=== PATIENT | male | born 1950 | race Caucasian/White ===

== ENCOUNTER 2019-07-11 12:34 | Outpatient (CLI) | payer MEDICARE, MEDICAID, SELFPAY ==
--- NOTE | 2019-07-11 12:43 | MR_ITS ---
WS: [id number] MRI LUMBAR SPINE NONCONTRAST HISTORY: HYPER REFLEXIA OF LOWER EXTREMITY COMPARISON: None available. TECHNIQUE: Sagittal and axial multisequence imaging is submitted. Skeletal survey demonstrates reversal of the normal cervical lordosis with severe disc space narrowin g. Encroachment upon the central cervical canal at several levels. Severe rotary scoliosis in the lumbar spine with convexity to the LEFT. Asymmetric disc space narrowi ng. Large osteophytes extend anterior posterior throughout the lumbar spine. Mild reactive marrow edema in the endplates of L4 and L5. Conus terminates normally at L1-2 disc level. L1-L2: Diffuse annular disc bulging and osteophytic ridging with facet arthritis. No central stenosis . Moderate bilateral foraminal stenosis. L2-L3: Severe annular disc bulging and osteophytic ridging. RIGHT facet arthritis encroaches upon the RIGHT lateral thecal sac and is abuts the nerve roots. Mild central stenosis with mild RIGHT and mod erate LEFT foraminal stenosis. L3-L4: Diffuse annular disc bulging and osteophytic ridging. Facet joint arthritis encroaches upon th e thecal sac. Moderate RIGHT foraminal stenosis. L4-L5: Marked asymmetric disc bulging and osteophytic ridging and facet arthritis. Nerve roots are cl umped within the central thecal sac. There is moderate central and subarticular recess stenosis. Kriss re RIGHT and moderate LEFT foraminal stenosis. L5-S1: Annular disc bulging and osteophytic ridging. Central disc protrusion and mild facet arthritis . Moderate LEFT foraminal stenosis. Mild fatty replacement of the RIGHT psoas muscle. MR/MR lumbar spine wo con* [id number] IMPRESSION: 1. Severe LEFT convex rotoscoliosis lumbar spine and degenerative facet arthri tis. 2. Multilevel foraminal and central stenoses. Multifactorial stenoses with lar ge osteophytes from the vertebral bodies. 3. Moderate central, bilateral subarticular recess stenosis with severe RIGHT and moderate LEFT foraminal stenosis at L4-5. 4. Moderate LEFT foraminal stenosis at L3-4 and L5-S1. 5. Moderate bilateral foraminal stenosis at L1-2. 6. Mild central and RIGHT foraminal stenosis with moderate LEFT foraminal sten osis at L2-3.
== END 2019-07-11 12:35 | disposition home or self-care (01) ==
LOC: RADWPI 12:39
PROVIDERS: Family Provider Family Medicine; PCP Family Medicine; Visit Provider Family Medicine
DX: R29.2 Abnormal reflex (principal); M41.86 Other forms of scoliosis, lumbar region; M48.061 Spinal stenosis, lumbar region without neurogenic claudication; M25.78 Osteophyte, vertebrae
CPT/HCPCS: 72148

== ENCOUNTER 2019-08-20 12:59 | Outpatient (CLI) | payer MEDICARE, MEDICAID, SELFPAY ==
--- NOTE | 2019-08-20 12:45 | USCV_ITS ---
Roscoe Ascencio Age: 69 Gender: M : 1950 Exam Date: 08/20/2019 13:28 Ordering Phys: Dewayne Ellsworth MD ([email or web address]) Technologist: Sherice Elizabeth [place] [facility] [place]: AORTIC STENOSIS BP: / HR: 76 Rhythm: Sinus Technical Quality: Adequate MEASUREMENTS (Male / Female) Normal Values 2D ECHO LV Diastolic Diameter PLAX 4.1 cm 4.2 - 5.9 / 3.9 - 5.3 cm LV Systolic Diameter PLAX 2.9 cm IVS Diastolic Thickness 0.8 cm 0.6 - 1.0 / 0.6 - 0.9 cm IVS Systolic Thickness 1.6 cm LVPW Diastolic Thickness 1.1 cm 0.6 - 1.0 / 0.6 - 0.9 cm LVPW Systolic Thickness 1.5 cm LVOT Diameter 2.1 cm LV Ejection Fraction 2D Teich 59.1 % LV Ejection Fraction MOD 2C 76.2 % LV Ejection Fraction 2C AL 76.8 % LA Diameter 3.2 cm LA Width 2.9 cm LA Height 4.0 cm RA Width 3.2 cm RA Height 3.6 cm M-MODE LV Diastolic Diameter MM 5.3 cm 4.2 - 5.9 / 3.9 - 5.3 cm LV Systolic Diameter MM 3.3 cm LV Ejection Fraction MM Teich 66.2 % IVS Diastolic Thickness MM 0.6 cm 0.6 - 1.0 / 0.6 - 0.9 cm IVS Systolic Thickness MM 1.2 cm LVPW Diastolic Thickness MM 0.9 cm 0.6 - 1.0 / 0.6 - 0.9 cm LVPW Systolic Thickness MM 1.3 cm Aortic Annulus Diameter 3.6 cm LA Ao Ratio MM 0.9 MV E Point Septal Separation 0.3 cm DOPPLER AV Peak Velocity 164.0 cm/s LVOT Peak Velocity 87.0 cm/s AV Area Cont Eq vti 2.0 cm squared AV Area Cont Eq pk 1.9 cm squared MV Peak Velocity 89.0 cm/s MV Area PHT 4.6 cm squared Mitral E to A Ratio 1.0 MV E' Velocity 9.0 cm/s Mitral E to MV E' Ratio 9.1 Mitral E to LV E' Lateral Ratio 10.0 Mitral E to LV E' Septal Ratio 8.4 TR Peak Velocity 121.0 cm/s TR Peak Gradient 5.9 mmHg Right Atrial Pressure 3.0 mmHg Pulmonary Artery Systolic Pressu 8.9 mmHg PV Peak Velocity 83.0 cm/s RV Acceleration Time 0.1 s FINDINGS Left Ventricle Normal left ventricular size, systolic function and wall thickness, with no regional wall motion abnormalities. Grade I/IV diastolic dysfunction (abnormal relaxation filling pattern), normal to mildly elevated filling pressures. Left ventricular ejection fraction is estimated at 65 %. Right Ventricle Normal right ventricular size and systolic function. Normal right ventricular systolic pressure. Right Atrium The right atrium is normal in size. Left Atrium The left atrium is normal in size. Mitral Valve Structurally normal mitral valve. Trace mitral valve regurgitation. Aortic Valve Structurally normal trileaflet aortic valve. Mild aortic valve calcification. Mild aortic valve stenosis, mean gradient 5.3 mmHg, JERI 2 cm squared. Mild aortic valve regurgitation. Tricuspid Valve Structurally normal tricuspid valve. Trace tricuspid valve regurgitation. Pulmonic Valve Pulmonic valve not well visualized. Pericardium Normal pericardium without effusion. Aorta Normal ascending aorta dimension. CONCLUSIONS Normal left ventricular size, systolic function and wall thickness, with no regional wall motion abnormalities. Grade I/IV diastolic dysfunction (abnormal relaxation filling pattern), normal to mildly elevated filling pressures. Left ventricular ejection fraction is estimated at 65 %. Structurally normal mitral valve. Trace mitral valve regurgitation. Structurally normal trileaflet aortic valve. Mild aortic valve calcification. Mild aortic valve stenosis, mean gradient 5.3 mmHg, JERI 2 cm squared. Mild aortic valve regurgitation. The study is unchanged since 03/26/2017. Dr. Dewayne Ellsworth MD (Electronically Signed) Final Date: 20 August 2019 17:34 S
== END 2019-08-20 13:00 | disposition home or self-care (01) ==
LOC: RAD 13:03
PROVIDERS: Family Provider Family Medicine; PCP Family Medicine; Visit Provider Internal Medicine Cardiovascular Disease
DX: I08.0 Rheumatic disorders of both mitral and aortic valves (principal)
CPT/HCPCS: 93306

== ENCOUNTER 2019-10-16 10:15 | Outpatient (CLI) | payer MEDICARE, MEDICAID, SELFPAY ==
--- NOTE | 2019-10-16 10:21 | CT_ITS ---
WS: [id number] CT CHEST WITHOUT INTRAVENOUS CONTRAST HISTORY: LUNG MASS TECHNIQUE: Contiguous 5 mm axial imaging performed on the thorax. Coronal and sagittal reformats are submitted. All CT scans at [facility] use at least one of these dose optimization techniq ues: automated exposure control; mA and/or kV adjustment per patient size (includes targeted exams wh ere dose is matched to clinical indication); or iterative reconstruction. CONTRAST: None DLP: 573.07 mGycm COMPARISON: 04/16/2017 Lungs and central airway: Prior RIGHT upper lobectomy. Surgical sutures at the RIGHT hilum are stable with no adjacent soft tissue. Chronic emphysematous changes. Mild volume loss in the RIGHT lung from the prior upper lobectomy. There is new very mild interstitial thickening in the periphery in the RI GHT upper thorax. Pleura: Normal. No pleural effusion. Heart and pericardium: Mildly enlarged heart chambers. Mediastinum and arsenoi: Slight shift of the mediastinal structures to the RIGHT secondary to the lobect antonino and volume loss. 10 mm lymph node anterior to the trachea near the level of the great vessels. Th is lymph node is indeterminate in size but slightly increased in size since the prior study. There ar e a few additional smaller lymph nodes. Vessels: Ectasia and atherosclerosis of aorta. Very mild aneurysmal dilatation to 4.1 cm of the ascen ding aorta. Pulmonary artery size is enlarged slightly. Chest wall and lower neck: No soft tissue masses. Upper abdomen: Marked constipation and fecal retention throughout the visualized colon. No adrenal ma ss. Visualized liver on this unenhanced study is negative. Osseous structures: Straightening of the normal thoracic kyphosis. No osteoblastic or osteolytic bone disease. There is diffuse osteopenia. Stable sclerotic focus along the posterior RIGHT RIBS, image 2 4 series 3. Prior posterior healed RIGHT rib fractures. CT/CT chest wo con [id number] IMPRESSION: 1. Status post RIGHT upper lobectomy. No evidence for recurrent neoplasm. 2. Indeterminate but minimal increase in size of the anterior RIGHT paratrache al lymph node. Now measuring 10 mm. 3. Severe emphysema. 4. Severe obstipation and constipation. 5. Mild dilatation ascending aorta to 4.1 cm.
== END 2019-10-16 10:16 | disposition home or self-care (01) ==
LOC: RADWPI 10:18
PROVIDERS: Family Provider Family Medicine; PCP Family Medicine; Visit Provider Family Medicine
DX: R91.8 Other nonspecific abnormal finding of lung field (principal); Z90.2 Acquired absence of lung [part of]; J43.9 Emphysema, unspecified; K59.00 Constipation, unspecified; I77.819 Aortic ectasia, unspecified site
CPT/HCPCS: 71250

== ENCOUNTER 2019-12-09 16:45 | Observation (INO) | payer MEDICARE, MEDICAID, SELFPAY ==
--- NOTE | 2019-12-09 17:37 | CTR_ITS ---
PROCEDURE INFORMATION: Exam: CT Head Without Contrast Exam date and time: 12/09/2019 5:54 PM Age: 69 years old Clinical indication: Weakness, extremity; Patient HX: AMS; Additional info: Altered mental status TECHNIQUE: Imaging protocol: Computed tomography of the head without contrast. Radiation optimization: All CT scans at this facility use at least one of these dose optimization techniques: automated exposure control; mA and/or kV adjustment per patient size (includes targeted exams where dose is matched to clinical indication); or iterative reconstruction. COMPARISON: No relevant prior studies available. RADIATION DOSE METRICS: Total DLP (mGy-cm): 724.78 FINDINGS: Brain: Mild diffuse cortical volume loss. 8 mm coarse calcification in the posterior left parietal lobe which may be located within a sulcus. Severe vasogenic edema throughout the left parietal, occipital, and posterior temporal lobes which spares the overlying cortex. Partial sulcal effacement of the left parietal and occipital lobes. 2 mm [id number] subfalcine shift. No intracranial hemorrhage. Cerebral ventricles: Partial effacement of the left occipital horn. No hydrocephalus. Bones/joints: Unremarkable. No acute fracture. Paranasal sinuses: Visualized sinuses are unremarkable. No fluid levels. Mastoid air cells: Visualized mastoid air cells are well aerated. Vasculature: No hyperdense artery. Soft tissues: Unremarkable. CT/CT head wo con* [id number] IMPRESSION: 1. Severe vasogenic edema in the left parietal, occipital, and temporal lobes. This is suspicious for an underlying neoplastic process which could be primary or metastatic. Further evaluation with brain MRI without and with IV gadolinium is recommended. 2. Left hemispheric mass effect contributes to effacement of sulci, effacement of the left occipital horn, and 2 mm [id number] subfalcine shift. 3. 8 mm probable dystrophic calcification in the left parietal lobe may be within the cortex or extra-axial in location. Attention on MRI follow-up. Radiation Dose CTDIVOL = (mGy): DLP = 724.78 (mGy-cm)
[2019-12-09 17:42] VITALS: BP 137/87; PULSE 87; RESP 18; TEMP 36.9; O2SAT 97; BMI 21.2
--- NOTE | 2019-12-09 17:53 | ECG_ITS ---
[facility] Test Date: 2019-12-09 Pat Name: Roscoe Ascencio Department: Room: Gender: Male [employer]: : 1950 Requested By: Joshua Clemente Order Number: [id number] Kaye MD: Misty Padron M.D. Measurements Intervals [place] Rate: 75 P: 116 NH: 197 QRS: -36 QRSD: 106 T: 17 QT: 407 QTc: 455 Interpretive Statements SINUS RHYTHM LEFT AXIS DEVIATION [QRS AXIS < -30] POSSIBLE RIGHT VENTRICULAR CONDUCTION DELAY [RSR (QR) IN V1/V2] ANTERIOR MYOCARDIAL INFARCTION , OF INDETERMINATE AGE [40+ ms Q WAVE AND/OR ST/T ABNORMALITY IN V3/V4] Compared to ECG 10/05/2014 11:47:45 Myocardial infarct finding now present ST (T wave) deviation no longer present Electronically Signed On 12-09-2019 20:13:41 CDT by Misty Padron M.D. [id number]
--- NOTE | 2019-12-09 17:53 | XRR_ITS ---
PROCEDURE INFORMATION: Exam: XR Chest, 1 View Exam date and time: 12/09/2019 6:30 PM Age: 69 years old Clinical indication: Other: AMS; Prior surgery; Surgery type: Lung TECHNIQUE: Imaging protocol: XR of the chest Views: 1 view. COMPARISON: CT chest con [id number] 10/16/2019 10:29 AM FINDINGS: Lungs: Clips are present in the right pulmonary hilum from right upper lobectomy. The pulmonary vascularity is normal. No acute pulmonary infiltrates are seen. Pleural space: Unremarkable. No pleural effusion. No pneumothorax. Heart/Mediastinum: Heart is not enlarged. There is tortuosity of the aorta. Bones/joints: There is old fracture of the right 6th rib. XR/XR chest 1V portable [id number] IMPRESSION: No acute abnormalities are seen in the chest.
--- NOTE | 2019-12-09 18:18 | W.ED.AMS ---
HPI - Altered Mental Status General: Chief Complaint: Altered Mental Status Stated Complaint: sent from doc for delirium and neuroimaging Time Seen by Provider: 12/09/19 17:53 Source: patient Mode of arrival: ambulatory Limitations: no limitations History of Present Illness: HPI narrative: 69-year-old male that states has had multiple falls and weakness over the last 10 days. Patient had a fall 1 week ago where he struck his head. She states he is not been acting right and is confused. Here he tells me is 1970 and is only alert to self. She states he has not been like this in the past. Patient was sent here by his PCP. He denies any fever or pain. Associated symptoms: Deny depression Review of Systems Const: Denies: fever(s), chills, body aches or change in appetite Eyes: Denies: blurry vision or eye discomfort ENMT: Denies: throat pain or dental pain Card: Denies: chest pain Resp: Denies: dyspnea GI: Denies: abdominal pain, nausea, vomiting or diarrhea : Denies: dysuria Musc: Reports: muscle weakness; Denies: neck pain or back pain Skin/Breast: Denies: rash Neuro: Reports: frequent falls and confusion; Denies: headache(s) Psych: Denies: depression Kwame/Lymph: Denies: easy bruising All/Imm: Denies: urticaria PFS ED PFSH: Medical History (Updated 12/09/19 @ 20:29 by David Nunes MD) Aortic regurgitation Aortic stenosis Dyslipidemia Lung cancer Non-small cell lung cancer Peptic ulcer disease Urethral trauma Status post repair 2010 Surgical History (Updated 12/09/19 @ 20:29 by David Nunes MD) S/P appendectomy S/P cataract extraction S/P hernia repair 2003 S/P lobectomy of lung 10/08/2014, muscle-sparing right thoracotomy right upper and middle lobectomy Family History (Updated 12/09/19 @ 20:29 by David Nunes MD) Brother Cancer Melanoma Sister Cancer Brain tumor Social History Smoking and tobacco status: former smoker Household members: spouse Marital status: Physical Exam Const: COMMON NORMALS: no acute distress and alert; negative for patient oriented x3 GENERAL APPEARANCE: ill appearing and frail appearing ORIENTATION/CONSCIOUSNESS: Yes oriented to person; not oriented to place and not oriented to time HENMT: COMMON NORMALS: normocephalic and atraumatic HEAD & SCALP: normocephalic and atraumatic Eye: COMMON NORMALS: Equal, round and reactive pupils present and EOMs intact bilaterally PUPIL: Yes Equal, round and reactive pupils present Neck/C-Spine: COMMON NORMALS: full ROM and supple Chest: COMMONS NORMALS: normal inspection of the chest and normal palpation of entire chest wall Resp: COMMON NORMALS: normal respiratory effort, No retractions, No use of accessory muscles and clear to auscultation bilaterally AUSCULTATION: clear to auscultation bilaterally Cardio: COMMON NORMALS: regular rate, regular rhythm and No murmurs present (Cardio) RATE: regular rate RHYTHM: regular rhythm GI: COMMON NORMALS: Normal to inspection, nondistended, normoactive bowel sounds present, Soft to palpation, non-tender and no masses PALPATION: Yes Soft to palpation Extremity: COMMON NORMALS: normal to inspection and full ROM Neuro: COMMON NORMALS: moves all extremities and no focal motor deficits; negative for patient oriented x3 SENSORIUM/ORIENTATION: Yes alert, Yes oriented to person, No oriented to place and No oriented to time Psych: COMMON NORMALS: mental status grossly normal, Normal thought process present and cooperative THOUGHT PROCESS: Normal thought process present Skin: COMMON NORMALS: no rashes or lesions noted and no wounds GENERAL SKIN EXAM: no rashes or lesions noted Course Vital Signs: Vital signs: Vital Signs Temperature 98.5 F 12/09/19 17:42 Pulse Rate 75 12/09/19 20:36 Respiratory Rate 16 12/09/19 20:36 Blood Pressure 148/94 12/09/19 20:36 Pulse Oximetry 97 12/09/19 20:36 MDM - Altered Mental Status MDM Narrative: Medical decision making narrative: Roscoe presents here with confusion along with frequent falls over the last week. CT head shows edema with likely brain mass. I spoke to hospitalist and will admit at this time. Patient here has been stable. Lab Data: Labs: Lab Results 12/09/19 12/09/19 12/09/19 Range/Units 18:02 18:02 18:02 WBC 10.9 H (4.0-10.0) 10^3/ uL RBC 4.37 (4.1-5.3) 10^6/u L Hgb 12.3 (11.7-16.6) g/dL Hct 38.6 L (42.0-52.0) % MCV 88.3 (80-94) fL MCH 28.1 (28.0-34.0) pg MCHC 31.9 (30.0-36.0) g/dL RDW 13.5 (12.1-15.1) % Plt Count 259 (130-400) 10^3/c mm MPV 10.8 H (7.4-10.4) fL Neut % (Auto) 83.7 % Lymph % (Auto) 9.4 % [place] % (Auto) 5.8 % Eos % (Auto) 0.6 % Baso % (Auto) 0.2 % Neut # (Auto) 9.13 H (1.8-7.7) 10^3/u L Lymph # (Auto) 1.0 (0.8-4.8) 10^3/u L [place] # (Auto) 0.6 (0.2-0.9) 10^3/u L Eos # (Auto) 0.1 (0.0-0.8) 10^3/u L Baso # (Auto) 0.0 (0.0-0.1) 10^3/u L Nucleated RBC % (a uto) 0 % Nucleated RBCs # 0.0 /100WBC PT 13.60 (12.1-14.9) SECO NDS INR 1.01 (0.8-1.2) Sodium 132 L (136-145) mmol/L Potassium 3.9 (3.5-5.1) mmol/L Chloride 95 L (98-107) mmol/L Carbon Dioxide 26 (22-29) mmol/L Anion Gap 14.9 (5-19) BUN 11 (8-23) mg/dL Creatinine 0.7 (0.7-1.2) mg/dL GFR Calculation Not Reportable Glucose 110 (65-115) mg/dL Calculated Osmolal ity 274 L (285-295) mOsm/k g Calcium 9.2 (8.5-10.5) mg/dL Total Bilirubin 0.2 (0.15-1.2) mg/dL AST 20 (0-40) U/L ALT 15 (0-41) U/L Alkaline Phosphata se 114 (40-130) IU/L Ammonia (16-60) umol/L Total Protein 7.3 (6.6-8.7) g/dL Albumin 4.3 (3.5-5.2) g/dL Globulin 3.0 (1.3-4.6) g/dL Urine Color (Yellow) Urine Appearance (CLEAR) Urine pH (5-7) Ur Specific Gravit y (1.005-1.030) Urine Protein (Negative) Urine Glucose (UA) (Normal) Urine Ketones (Negative) Urine Blood (Negative) Urine Nitrate (Negative) Urine Bilirubin (Negative) Urine Urobilinogen (Negative) mg/dL Ur Leukocyte Shari ase (Negative) Urine RBC (0-2) /hpf Urine WBC (0-5) /hpf Ur Squamous Epith Cells (0-5) /hpf Amorphous Sediment Urine Bacteria (NONE) /hpf Urine Yeast /hpf 12/09/19 12/09/19 Range/Units 18:02 18:37 WBC (4.0-10.0) 10^3/ uL RBC (4.1-5.3) 10^6/u L Hgb (11.7-16.6) g/dL Hct (42.0-52.0) % MCV (80-94) fL MCH (28.0-34.0) pg MCHC (30.0-36.0) g/dL RDW (12.1-15.1) % Plt Count (130-400) 10^3/c mm MPV (7.4-10.4) fL Neut % (Auto) % Lymph % (Auto) % [place] % (Auto) % Eos % (Auto) % Baso % (Auto) % Neut # (Auto) (1.8-7.7) 10^3/u L Lymph # (Auto) (0.8-4.8) 10^3/u L [place] # (Auto) (0.2-0.9) 10^3/u L Eos # (Auto) (0.0-0.8) 10^3/u L Baso # (Auto) (0.0-0.1) 10^3/u L Nucleated RBC % (a uto) % Nucleated RBCs # /100WBC PT (12.1-14.9) SECO NDS INR (0.8-1.2) Sodium (136-145) mmol/L Potassium (3.5-5.1) mmol/L Chloride (98-107) mmol/L Carbon Dioxide (22-29) mmol/L Anion Gap (5-19) BUN (8-23) mg/dL Creatinine (0.7-1.2) mg/dL GFR Calculation Glucose (65-115) mg/dL Calculated Osmolal ity (285-295) mOsm/k g Calcium (8.5-10.5) mg/dL Total Bilirubin (0.15-1.2) mg/dL AST (0-40) U/L ALT (0-41) U/L Alkaline Phosphata se (40-130) IU/L Ammonia 10 L (16-60) umol/L Total Protein (6.6-8.7) g/dL Albumin (3.5-5.2) g/dL Globulin (1.3-4.6) g/dL Urine Color Yellow (Yellow) Urine Appearance Hazy A (CLEAR) Urine pH 7 (5-7) Ur Specific Gravit y 1.010 (1.005-1.030) Urine Protein Neg (Negative) Urine Glucose (UA) Norm (Normal) Urine Ketones Negative (Negative) Urine Blood 3+ H (Negative) Urine Nitrate Negative (Negative) Urine Bilirubin Neg (Negative) Urine Urobilinogen Norm (Negative) mg/dL Ur Leukocyte Shari ase Negative (Negative) Urine RBC 10-15 H (0-2) /hpf Urine WBC 0-4 H (0-5) /hpf Ur Squamous Epith Cells 0-4 H (0-5) /hpf Amorphous Sediment Not Reportable Urine Bacteria 1+ H (NONE) /hpf Urine Yeast 2+ H /hpf Imaging Data^: CXR: Attestation: I personally reviewed and interpreted this imaging study as follows: My impression: No acute abnormality CT Head: Radiologist's impression: [address] [place] [address] CT Scan Report Signed with Addenda Patient: Roscoe Ascencio Unit #: [id number] : 1950 Age/Sex: 69 / M ADM Date: 12/09/19 Loc: ER Room/Bed: Attending Dr: Ordering Provider/Ordering MD: Edelmira Villafana MD Date of Service: 12/09/19 Procedure(s): CT head wo con* [id number] Accession Number(s): [id number] Report Number: [id number]/CT head wo con* [id number] THIS REPORT CONTAINS FINDINGS THAT MAY BE CRITICAL TO PATIENT CARE. The findings were verbally communicated via telephone conference with Dr. Clemente at 7:27 PM CDT on 12/09/2019. The findings were acknowledged and understood. Radiation Dose CTDIVOL = (mGy): DLP = 724.78 (mGy-cm) Addendum Dictated By: Ferdinand Alatorre Addendum Signed By: Ferdinand Alatorre Signed Date/Time: 12/09/19 1 929 Addendum Cosigned By: PROCEDURE INFORMATION: Exam: CT Head Without Contrast Exam date and time: 12/09/2019 5:54 PM Age: 69 years old Clinical indication: Weakness, extremity; Patient HX: AMS; Additional info: Altered mental status TECHNIQUE: Imaging protocol: Computed tomography of the head without contrast. Radiation optimization: All CT scans at this facility use at least one of these dose optimization techniques: automated exposure control; mA and/or kV adjustment per patient size (includes targeted exams where dose is matched to clinical indication); or iterative reconstruction. COMPARISON: No relevant prior studies available. RADIATION DOSE METRICS: Total DLP (mGy-cm): 724.78 FINDINGS: Brain: Mild diffuse cortical volume loss. 8 mm coarse calcification in the posterior left parietal lobe which may be located within a sulcus. Severe vasogenic edema throughout the left parietal, occipital, and posterior temporal lobes which spares the overlying cortex. Partial sulcal effacement of the left parietal and occipital lobes. 2 mm [id number] subfalcine shift. No intracranial hemorrhage. Cerebral ventricles: Partial effacement of the left occipital horn. No hydrocephalus. Bones/joints: Unremarkable. No acute fracture. Paranasal sinuses: Visualized sinuses are unremarkable. No fluid levels. Mastoid air cells: Visualized mastoid air cells are well aerated. Vasculature: No hyperdense artery. Soft tissues: Unremarkable. CT/CT head wo con* [id number] IMPRESSION: 1. Severe vasogenic edema in the left parietal, occipital, and temporal lobes. This is suspicious for an underlying neoplastic process which could be primary or metastatic. Further evaluation with brain MRI without and with IV gadolinium is recommended. 2. Left hemispheric mass effect contributes to effacement of sulci, effacement of the left occipital horn, and 2 mm pnui-pe-lehbs subfalcine shift. 3. 8 mm probable dystrophic calcification in the left parietal lobe may be within the cortex or extra-axial in location. Attention on MRI follow-up. Discharge Plan Discharge Patient Disposition: Admitted As Inpatient Clinical Impression: Brain mass Altered mental status Qualifiers: Altered mental status type: unspecified Qualified Code(s): R41.82 - Altered mental status, unspecified Condition: Stable Referrals: Delmer Whitley MD [Primary Care Provider] - Coding Level of Care Code ED General Counsel for [facility] Fwd Exam Comprehensive
[2019-12-09 18:31] LABS: Ammonia 10 umol/L (16-60)
[2019-12-09 18:43] LABS: Basophils % 0.2 %; Eosinophils # 0.1 10^3/uL (0.0-0.8); Eosinophils % 0.6 %; Hematocrit 38.6 % (42.0-52.0); Hemoglobin 12.3 g/dL (11.7-16.6); INR 1.01 (0.8-1.2); Lymphocytes % 9.4 %; Mean Corpuscular HGB Conc 31.9 g/dL (30.0-36.0); Mean Corpuscular Hemoglobin 28.1 pg (28.0-34.0); Mean Corpuscular Volume 88.3 fL (80-94); Mean Platelet Volume 10.8 fL (7.4-10.4); Monocytes # 0.6 10^3/uL (0.2-0.9); Monocytes % 5.8 %; Neutrophils # 9.13 10^3/uL (1.8-7.7); Neutrophils % 83.7 %; Nucleated Red Blood Cells % 0 %; Platelet Count 259 10^3/cmm (130-400); Red Blood Count 4.37 10^6/uL (4.1-5.3); Red Cell Distribution Width 13.5 % (12.1-15.1); White Blood Count 10.9 10^3/uL (4.0-10.0)
[2019-12-09 18:47] LABS: Alanine Aminotransferase 15 U/L (0-41); Albumin Level 4.3 g/dL (3.5-5.2); Alkaline Phosphatase 114 IU/L (40-130); Anion Gap 14.9 (5-19); Aspartate Amino Transferase 20 U/L (0-40); Blood Urea Nitrogen 11 mg/dL (8-23); Calcium 9.2 mg/dL (8.5-10.5); Carbon Dioxide 26 mmol/L (22-29); Chloride 95 mmol/L (98-107); Glucose 110 mg/dL (65-115); Osmolality Calculated 274 mOsm/kg (285-295); Potassium 3.9 mmol/L (3.5-5.1); Sodium 132 mmol/L (136-145); Total Bilirubin 0.2 mg/dL (0.15-1.2); Total Protein 7.3 g/dL (6.6-8.7)
--- NOTE | 2019-12-09 18:59 | PC.NURSE ---
Pt to CT
--- NOTE | 2019-12-09 19:12 | PC.NURSE ---
Pt back in unit from CT
[2019-12-09 19:14] VITALS: BP 122/101; PULSE 76; RESP 18; O2SAT 98
[2019-12-09 19:29] LABS: Add Urine Microscopic? YES; Bilirubin Urine Neg (Negative); Blood Urine 3+ (Negative); Glucose Urine UA Norm (Normal); Ketones Urine Negative (Negative); Leukocyte Esterase Urine Negative (Negative); Nitrate Urine Negative (Negative); Protein Urine Neg (Negative); Urine Appearance Hazy (CLEAR); Urine Color Yellow (Yellow); Urobilinogen Urine Norm (Negative); pH Urine 7 (5-7)
[2019-12-09 19:50] LABS: Add Urine Culture? Yes; Bacteria Urine 1+ /hpf; Squamous Epithelial Cell Urine 0-4 /hpf (0-5); WBC Urine 0-4 /hpf (0-5)
--- NOTE | 2019-12-09 20:25 | PM.HP ---
Providers/Chief Complaint Primary Care Provider: Delmer Whitley MD Chief Complaint: sent from doc for delirium and neuroimaging History of Present Illness Roscoe Ascencio is a 69 year old male with history of non-small cell lung cancer status post muscle-sparing thoracotomy 2015 never required chemotherapy because primary tumor was relatively small but he did have advanced satellite nodules, COPD, peptic ulcer disease, degenerative joint disease presented today with chief complaint of altered mental status and generalized weakness. Patient was reluctant to come to the hospital, was worried about his fluctuating mentation since Sunday, PCP Dr. Whitley called today and convinced him to come to the ED for further evaluation. At the time my evaluation patient is awake alert, coherent, he told me that since Sunday his mentation has been fluctuant, he is denying headache, blurry vision, chest pain, shortness of breath, numbness or tingling of upper or lower extremities, he is endorsing fatigue and generalized weakness, otherwise denying diarrhea, constipation, vomiting. Is scheduled to get his teeth extracted in the near future because of severe gingivitis. At baseline he is able to carry out his daily activities on his own. Diagnosis in the ER revealed severe vasogenic edema left parietal, occipital temporal lobes with mass-effect Patient is coherent, at the time of my evaluation normal hemodynamics, able to give me above-mentioned details, not complaining of any active discomfort I called his to get the report, is stating that on he fell in the bathroom, got up on his own came to bed and went to sleep, next day he mentioned it to his , on Sunday he was going outside to work on his car when he squatted and fell on the ground, he did not lose consciousness no seizure-like activities but endorsed leg weakness. also noticed that he was struggling to find words to articulate which got better afterwards, PCP was called who recommended to come to the hospital for further evaluation. Review of Systems Const: Reports: body aches, change in appetite, change in weight and malaise; Denies: fever(s) or chills Eyes: Denies: change in vision ENMT: Reports: bleeding gums and dental pain; Denies: throat pain Card: Denies: chest pain Resp: Denies: dyspnea GI: Denies: abdominal pain : Denies: flank pain Musc: Denies: neck pain Skin/Breast: Reports: dry skin Neuro: Denies: headache(s) Psych: Reports: change in appetite and memory loss Endo: Denies: polyuria Kwame/Lymph: Denies: easy bruising All/Imm: Denies: urticaria Medications/Allergies Home Medications Medication Instructions Recorded Confirmed Last Taken Type albuterol sulfate 2.5 mg INHALATION Q4H PRN 07/28/19 08/06/19 Unknown History aspirin 81 mg tablet,delayed 81 mg PO DAILY 07/28/19 08/06/19 Unknown History release citalopram 40 mg tablet 40 mg PO DAILY tab 07/28/19 08/06/19 Unknown History docusate sodium 100 mg capsule 100 mg PO DAILY 07/28/19 08/06/19 Unknown History esomeprazole magnesium 40 mg 40 mg PO DAILY 07/28/19 08/06/19 Unknown History capsule,delayed release eszopiclone 3 mg tablet 3 mg PO .HS tab 07/28/19 08/06/19 Unknown History fentanyl 25 mcg/hr transdermal 1 patch TRANSDERMA Q72H 07/28/19 08/06/19 Unknown History patch ferrous sulfate 325 mg (65 mg 325 mg PO DAILY 07/28/19 08/06/19 Unknown History iron) tablet hydrocodone 10 mg-acetaminophen 1 tab PO Q6H PRN 07/28/19 08/06/19 Unknown History 325 mg tablet lisinopril 10 mg tablet 10 mg PO DAILY 07/28/19 08/06/19 Unknown History lorazepam 0.5 mg tablet 0.5 mg PO DAILY PRN 07/28/19 08/06/19 Unknown History simvastatin 40 mg tablet 40 mg PO DAILY 07/28/19 08/06/19 Unknown History tramadol 50 mg tablet 50 mg PO Q6H PRN 07/28/19 08/06/19 Unknown History travoprost 0.004 % eye drops OPHTHALMIC (EYE) .HS ml 07/28/19 08/06/19 Unknown History Allergies Allergy/AdvReac Type Severity Reaction Status Date / Time No Known Allergies Allergy Verified 12/09/19 17:41 PFSH Acute PFSH: Medical History Aortic regurgitation Aortic stenosis Dyslipidemia Lung cancer Non-small cell lung cancer Peptic ulcer disease Urethral trauma Status post repair 2010 Surgical History S/P appendectomy S/P cataract extraction S/P hernia repair 2003 S/P lobectomy of lung 10/08/2014, muscle-sparing right thoracotomy right upper and middle lobectomy Family History Brother Cancer Melanoma Sister Cancer Brain tumor Social History Smoking and tobacco status: former smoker Household members: spouse Marital status: Vitals/I&O/Wt Last Vital Signs Temp 98.5 F 12/09/19 17:42 Pulse 76 12/09/19 19:14 Resp 18 12/09/19 19:14 BP 122/101 12/09/19 19:14 Pulse Ox 98 12/09/19 19:14 Weight last 48 hrs Weight 67.132 kg Physical Exam Narrative: EXAM NARRATIVE: elderly male Cachectic, dehydrated Currently not in any distress Currently awake alert oriented x3 GCS 15, NIH 0 I do not appreciate any slurring of speech No pupillary asymmetry S1, S2 heart rate 78, normal hemodynamics Does not look fluid overloaded Abdomen soft nontender bowel sound present Lower extremity no edema gangrene or ulcer, strength 3/5 lower extremities, No skin ulcers Appropriate mood and affect Sarcopenia+ Data : 12/09/19 18:02 12/09/19 18:02 A&P Assessment and plan (1) Altered mental status: Status: Acute Qualifiers: Altered mental status type: unspecified Qualified Code(s): R41.82 - Altered mental status, unspecified (2) Brain mass: Status: Acute (3) Aortic stenosis: Status: Acute Additional A&P Information Recurrent falls/altered mental status No signs of meningitis, no recent fever, no signs of UTI X-ray is not showing any acute pathologies, CT head shows remarkable vasogenic edema with mass-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, will obtain MRI in the morning Patient only had lobectomy, never required chemotherapy At this point I do not see any spinal cord compression syndromes, patient is complaining of back pain, will do bladder scan overnight to monitor urine retention, lumbosacral CT scan to be done tomorrow Mild aortic stenosis with aortic regurgitation, no acute exacerbation Essential hypertension: Continue lisinopril Lower back pain, history of spinal surgery, I would continue [place] for now, senna S, DVT prophylaxis: Use SCDs, avoid anticoagulation at this point because of brain metastases concerned Cardiac diet Opioids for back pain CODE STATUS full code Attestations Medical Necessity Statement*: Anticipating stay in the hospital for less than 2 midnights currently need investigation to rule out brain metastases, he will need investigational work-up for remarkable CT findings of head Time Spent in Patient Care: (>than 50% of time spent in counselling and/or direct pt care on unit). 50 minutes Coding Level of Care Code Acute Lead Slot Technician for [facility] Diagnoses Altered mental status R41.82 Altered mental status type: unspecified Brain mass G93.89 Aortic stenosis I35.0
[2019-12-09 20:36] VITALS: BP 148/94; PULSE 75; RESP 16; O2SAT 97
[2019-12-09 22:01] VITALS: BP 143/98; PULSE 78; RESP 16; O2SAT 97
[2019-12-09 22:57] VITALS: PULSE 78; RESP 16; O2SAT 94
[2019-12-09 23:08] VITALS: BP 144/88; PULSE 82; RESP 19; TEMP 36.6; O2SAT 97
--- NOTE | 2019-12-09 23:10 | CTR_ITS ---
PROCEDURE INFORMATION: Exam: CT Lumbar Spine Without Contrast Exam date and time: 12/09/2019 11:11 PM Age: 69 years old Clinical indication: Low back pain; Additional info: Paraneoplastic syndrome TECHNIQUE: Imaging protocol: Computed tomography images of the lumbar spine without contrast. Radiation optimization: All CT scans at this facility use at least one of these dose optimization techniques: automated exposure control; mA and/or kV adjustment per patient size (includes targeted exams where dose is matched to clinical indication); or iterative reconstruction. COMPARISON: No relevant prior studies available. RADIATION DOSE METRICS: Total DLP (mGy-cm): 1625.92 FINDINGS: Vertebrae: Vertebral body height is maintained. No spondylolisthesis. There is moderate lower lumbar facet spondylosis. There is broad-based convex left mid lumbar scoliosis. There is no acute fracture. Discs/Spinal canal/Neural foramina: There is severe diffuse lumbar degenerative disc disease. There is moderate multifactorial spinal canal stenosis at L4-L5. Other bones/joints: There is a sclerotic bone lesion involving the posterosuperior left ilium. There is multilevel degenerative endplate sclerosis in the lumbar spine. Bladder: The urinary bladder is distended. Vasculature: There is severe aortic atherosclerotic disease. Soft tissues: Paraspinal soft tissues are unremarkable. CT/CT lumbar spine wo con* [id number] IMPRESSION: 1. No acute findings. 2. Sclerotic bone lesion in the left ilium. Possible metastasis. Radiation Dose CTDIVOL = (mGy): DLP = 1625.92 (mGy-cm)
--- NOTE | 2019-12-09 23:10 | CTR_ITS ---
PROCEDURE INFORMATION: Exam: CT Thoracic Spine Without Contrast Exam date and time: 12/09/2019 11:11 PM Age: 69 years old Clinical indication: Pain in thoracic spine; Additional info: Paraneoplastic syndrome TECHNIQUE: Imaging protocol: Computed tomography images of the thoracic spine without contrast. Radiation optimization: All CT scans at this facility use at least one of these dose optimization techniques: automated exposure control; mA and/or kV adjustment per patient size (includes targeted exams where dose is matched to clinical indication); or iterative reconstruction. COMPARISON: No relevant prior studies available. RADIATION DOSE METRICS: Total DLP (mGy-cm): 846.49 FINDINGS: Vertebrae: There is trace degenerative anterolisthesis of C7 on T1. Thoracic spine alignment is normal. Vertebral body height is maintained. There is no acute fracture. Discs/Spinal canal/Neural foramina: There is no spinal canal stenosis. Other bones/joints: Visible portions of the ribs are intact. Soft tissues: Paraspinal soft tissues are unremarkable. Lungs: There is centrilobular emphysema in the visible portions of the lungs. CT/CT thoracic spin wo con* [id number] IMPRESSION: No acute findings. Radiation Dose CTDIVOL = (mGy): DLP = 846.49 (mGy-cm)
[2019-12-10 00:59] VITALS: BP 147/87; PULSE 66; RESP 14; TEMP 36.4; O2SAT 96
[2019-12-10] MEDS: dexamethasone 4 mg Tablet PO ×5 (01:28→21:41)
[2019-12-10 03:00] VITALS: BP 138/74; PULSE 60; RESP 15; TEMP 36.6; O2SAT 94
[2019-12-10 05:40] LABS: Basophils % 0.1 %; Hematocrit 42.1 % (42.0-52.0); Hemoglobin 13.4 g/dL (11.7-16.6); Lymphocytes # 0.7 10^3/uL (0.8-4.8); Lymphocytes % 7.4 %; Mean Corpuscular HGB Conc 31.8 g/dL (30.0-36.0); Mean Corpuscular Hemoglobin 27.8 pg (28.0-34.0); Mean Corpuscular Volume 87.3 fL (80-94); Mean Platelet Volume 10.7 fL (7.4-10.4); Monocytes # 0.2 10^3/uL (0.2-0.9); Monocytes % 1.6 %; Neutrophils # 8.91 10^3/uL (1.8-7.7); Neutrophils % 90.6 %; Nucleated Red Blood Cells % 0 %; Platelet Count 254 10^3/cmm (130-400); Red Blood Count 4.82 10^6/uL (4.1-5.3); Red Cell Distribution Width 13.6 % (12.1-15.1); White Blood Count 9.8 10^3/uL (4.0-10.0)
[2019-12-10 06:01] LABS: Anion Gap 12.6 (5-19); Blood Urea Nitrogen 9 mg/dL (8-23); Calcium 9.6 mg/dL (8.5-10.5); Carbon Dioxide 23 mmol/L (22-29); Chloride 100 mmol/L (98-107); Glucose 120 mg/dL (65-115); Osmolality Calculated 274 mOsm/kg (285-295); Potassium 3.6 mmol/L (3.5-5.1); Sodium 132 mmol/L (136-145)
[2019-12-10] MEDS: lisinopril 10 mg Tablet PO (08:13)
[2019-12-10] MEDS: citalopram 20 mg Tablet 40 MG PO (08:13)
[2019-12-10] MEDS: atorvastatin 40 mg Tablet 20 MG PO (08:14)
[2019-12-10] MEDS: pantoprazole DR 40 mg Tablet 20 MG PO (08:14)
[2019-12-10] MEDS: sennosides-docusate Tablet 1 TAB PO (08:14)
--- NOTE | 2019-12-10 08:24 | CT_ITS ---
WS: [id number] CT CHEST, ABDOMEN, AND PELVIS TECHNIQUE: Noncontrast CT of the chest, abdomen, and pelvis with coronal and sagittal reformatted angel ges. CLINICAL INFORMATION: hx of lung ca, s/p lobectomy, now wih brain mets, unkknow pi COMPARISON: Multiple prior chest CTs most recently October 16, 2019 DLP: 1066.[address] scans at [facility] use at least one of these dose optimization techniques: automat ed exposure control; mA and/or kV adjustment per patient size (includes targeted exams where dose is matched to clinical indication); or iterative reconstruction. CT CHEST: Prior postoperative changes right upper lobectomy. Postoperative sutures the right hilum stable since the prior examination. Volume loss right lung from prior upper lobectomy. Volume loss right lung. St able 10 mm precarinal lymph node. A few normal sized peribronchial lymph nodes. No axillary lymphaden opathy. Moderate chronic emphysematous changes. No evidence of progressed disease in the chest. 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 Chronic right rib fra ctures. CT ABDOMEN AND PELVIS: Noncontrast liver is normal. Normal adrenal glands. No hydronephrosis in either kidney. Tortuous abdo ray aorta with calcification. No aneurysm. No periaortic or upper abdominal lymphadenopathy. Gallbl adder is contracted. Normal spleen. Rectosigmoid constipation. Rectal distention. No evidence of high -grade small or large bowel obstruction. Advanced degenerative disc disease lumbar spine with vacuum disc phenomenon. S-shaped lumbar scoliosi s. Suggestion of possible metastatic lesions in the lumbar vertebral bodies at L2 on L3. Advanced scl erotic endplate changes. Bones could be further evaluated with bone scan. Sclerotic lesion left ilium . CT/CT chest abd pel wo con IMPRESSION: 1. Prior postoperative changes right upper lobectomy. 2. Stable 10 mm right pretracheal lymph node. 3. No evidence of progressed disease in the chest. 4. No evidence of metastatic disease in the abdomen or pelvis considering nonc ontrast examination. 5. Suggestion of possible metastatic lesions involving the lumbar spine at L2 and L3 vertebral bodies. 6. This could be further evaluated with bone scan.
[2019-12-10 11:06] VITALS: BP 138/74; PULSE 60; RESP 15; TEMP 36.6
[2019-12-10 12:00] VITALS: BP 146/80; PULSE 92; RESP 17; TEMP 36.7; O2SAT 97
[2019-12-10] MEDS: ondansetron 2 mg/ML SDV 2 mL 4 MG IVP (12:09)
--- NOTE | 2019-12-10 14:05 | PM.PN ---
Subjective Subjective: Interval history: Patient was examined this morning times, examined at the end with his family members at bedside I advised patient that his head CT shows severe vasogenic edema, left hemispheric mass affect, concerning for underlying neoplastic process. Patient does have a history of non-small cell lung cancer of the right upper and right middle lobe, status post lobectomy, did not receive chemoradiation, managed by Dr. Chau, last seen in 2014. Currently the primary is unknown, but imaging does show possible metastatic lesions in L2 and L3 vertebral bodies, sclerotic bone lesion in the left hilum. Falls concerning for metastatic malignancy, primary is unknown, but possibilities include non-small cell lung cancer, paraneoplastic syndrome, prostate cancer his PSA is elevated. Currently he is receiving steroids, head of bed elevation, neurochecks, seizure precautions. Currently concern for cerebral edema, mass-effect increased intracranial pressure, leading to herniation and significant morbidity and mortality. Currently at our hospital we do not have any neurosurgery, so if there was any indication of worsening cerebral edema or herniation, he would have to be transferred to [place], for consideration for bur hole procedure. I have discussed the case with Dr. Chau, who advised that the first step is to decrease cerebral edema, and irradiate the metastatic lesions, patient will be a candidate for whole brain radiation, as inpatient, and that we would try to figure out the primary. I advised patient that radiographically this looks a lot like metastatic disease to the brain, however cancer is a tissue diagnosis, and to prove that it is cancer we would need a tissue biopsy, but radiographically it looks like malignancy, patient voiced ascitic well questions answered. I advised patient and family, that he has 2 options: 1.) Pursue medical treatment, we can consult radiation oncology as inpatient, we can start inpatient whole brain radiation, and then we can proceed beginning at the primary, risks and benefits discussed, complications discussed, voiced understanding, all questions answered 2.) Second option involves pursuing hospice, hospice at home, this would emphasize more of a quality of life, he could be around family numbers, we would treat his pain, treat his anxiety, he would have a nurse who can come and see him 3 times a week, he would have hospice physician Patient has chosen to proceed with hospice, risk and benefits discussed, voiced understanding, all questions answered I confirmed patient's CODE STATUS, he wants to be DNR/DNI, risk and benefits discussed, voiced understanding, all questions answered I advised patient at any time he can suffer significant cerebral edema, brain herniation, that is associate with significant morbidity and mortality, if he were to suffer worsening headaches, blurry vision, or other symptomatology that concerning for worsening cerebral edema and or brain herniation, patient does not want to have bur hole procedure, wants us to make him as comfortable as possible, treat his pain, treat his suffering, agreed to proceed, advised of risks and benefits, voiced understanding, all questions answered, agreed to proceed Patient's family was at bedside, was at bedside, son was at bedside, 2 daughters were at bedside, all confirmed the plan above, voiced understanding, all questions answered Vitals/I&O/Wt Last Vital Signs Temp 98.0 F 12/10/19 12:00 Pulse 92 12/10/19 12:00 Resp 17 12/10/19 12:00 BP 146/80 12/10/19 12:00 Pulse Ox 97 12/10/19 12:00 12/09/19 12/10/19 12/10/19 22:59 06:59 14:59 Intake Total 600 / 600 Output Total 350 / 350 300 / 300 Balance -350 / -350 300 / 300 Weight last 48 hrs Weight 67.132 kg Physical Exam Const: COMMON NORMALS: no acute distress and patient oriented x3 HENMT: COMMON NORMALS: normocephalic HEAD & SCALP: normocephalic Neck/C-Spine: COMMON NORMALS: no JVD Resp: COMMON NORMALS: normal respiratory effort, No retractions, No use of accessory muscles and clear to auscultation bilaterally AUSCULTATION: clear to auscultation bilaterally Cardio: COMMON NORMALS: no JVD, regular rate, regular rhythm, S1 normal heart sound present and S2 normal heart sound present RATE: regular rate RHYTHM: regular rhythm HEART SOUNDS: S1 normal heart sound present and S2 normal heart sound present GI: COMMON NORMALS: Normal to inspection, nondistended, normoactive bowel sounds present, Soft to palpation, non-tender, No hepatosplenomegaly present, no masses and no bruits PALPATION: Yes Soft to palpation and Yes No hepatosplenomegaly present Extremity: COMMON NORMALS: capillary refill normal, no clubbing, cyanosis or edema, no calf tenderness and no pedal edema Neuro: COMMON NORMALS: patient oriented x3 Psych: COMMON NORMALS: mental status grossly normal Data : 12/10/19 05:30 12/10/19 05:30 A&P Assessment and plan (1) Brain mass: - ct head Brain: Mild diffuse cortical volume loss. 8 mm coarse calcification in the posterior left parietal lobe which may be located within a sulcus. Severe vasogenic edema throughout the left parietal, occipital, and posterior temporal lobes which spares the overlying cortex. Partial sulcal effacement of the left parietal and occipital lobes. 2 mm [id number] subfalcine shift. No intracranial hemorrhage. Cerebral ventricles: Partial effacement of the left occipital horn. No hydrocephalus. Bones/joints: Unremarkable. No acute fracture. Paranasal sinuses: Visualized sinuses are unremarkable. No fluid levels. Mastoid air cells: Visualized mastoid air cells are well aerated. Vasculature: No hyperdense artery. Soft tissues: Unremarkable. -ct lumbar Vertebrae: Vertebral body height is maintained. No spondylolisthesis. There is moderate lower lumbar facet spondylosis. There is broad-based convex left mid lumbar scoliosis. There is no acute fracture. Discs/Spinal canal/Neural foramina: There is severe diffuse lumbar degenerative disc disease. There is moderate multifactorial spinal canal stenosis at L4-L5. Other bones/joints: There is a sclerotic bone lesion involving the posterosuperior left ilium. There is multilevel degenerative endplate sclerosis in the lumbar spine.Advanced degenerative disc disease lumbar spine with vacuum disc phenomenon. S-shaped lumbar scoliosis. Suggestion of possible metastatic lesions in the lumbar vertebral bodies at L2 on L3. Advanced sclerotic endplate changes. Bones could be further evaluated with bone scan. Sclerotic lesion left ilium. Bladder: The urinary bladder is distended. Vasculature: There is severe aortic atherosclerotic disease. Soft tissues: Paraspinal soft tissues are unremarkable. -Discussed the case with Dr. Chau -Above findings are concerning for metastatic lesions to the brain, with vasogenic edema, mass-effect -Surprisingly patient currently patient not complaining of headache, no blurry vision, but does have weakness, fatigue, weight loss, frequent falls -Currently no clinical or physical findings of brain herniation PLAN: -Patient is DNR/DNI -Proceeding with hospice -Does not want bur hole procedure -Above all wants to remain as comfortable as possible, treat pain, treat suffering -For right now continue [place], head of bed elevation, neurochecks, seizure precautions Status: Acute (2) Altered mental status: Status: Acute Qualifiers: Altered mental status type: unspecified Qualified Code(s): R41.82 - Altered mental status, unspecified (3) Aortic stenosis: Status: Acute Additional A&P Information Mild aortic stenosis with aortic regurgitation, no acute exacerbation Essential hypertension: Continue lisinopril Lower back pain, history of spinal surgery DVT prophylaxis: Use SCDs, avoid anticoagulation at this point because of brain metastases concerned Cardiac diet Opioids for back pain CODE STATUS full code Attestations Medical Necessity Statement*: Patient requires hospitalization for brain mass, with cerebral edema, proceeding to hospice Coding Level of Care Code Acute Weight And Test Bar Clerk for [facility] Fwd Diagnoses Brain mass G93.89 Altered mental status R41.82 Altered mental status type: unspecified Aortic stenosis I35.0
[2019-12-10 16:00] VITALS: BP 125/67; PULSE 90; RESP 18; TEMP 36.3; O2SAT 95
[2019-12-10] MEDS: LORazepam 2 mg/mL INJ 1 mL 1 MG IVP (16:14)
[2019-12-10 20:00] VITALS: BP 119/76; PULSE 74; RESP 14; TEMP 37; O2SAT 96
[2019-12-10 21:32] LABS: Glucose Point of Care 134 mg/dL (70-110)
[2019-12-11] VITALS: BP 138/80; PULSE 81; RESP 16; TEMP 36.6; O2SAT 95
[2019-12-11 04:00] VITALS: BP 121/74; PULSE 70; RESP 16; TEMP 37.2; O2SAT 95
--- NOTE | 2019-12-11 06:01 | PC.NURSE ---
Patient mainly slept. When the patient woke up in the am, patient appeared to be accepting of his diagnosis. Stating that he was ready to go home with his family and expressed desire to depart the hospital as soon as possible.
[2019-12-11 07:48] VITALS: BP 126/77; PULSE 102; RESP 16; TEMP 37.2; O2SAT 96
[2019-12-11] MEDS: citalopram 20 mg Tablet 40 MG PO (08:31)
[2019-12-11] MEDS: atorvastatin 40 mg Tablet 20 MG PO (08:31)
[2019-12-11] MEDS: pantoprazole DR 40 mg Tablet 20 MG PO (08:31)
[2019-12-11] MEDS: lisinopril 10 mg Tablet PO (08:31)
[2019-12-11] MEDS: sennosides-docusate Tablet 1 TAB PO (08:31)
[2019-12-11] MEDS: dexamethasone 4 mg Tablet PO (11:01)
[2019-12-11] MEDS: ondansetron 4 MG Tablet 8 MG PO (11:39)
[2019-12-11 12:00] VITALS: BP 135/88; PULSE 88; RESP 17; TEMP 36.8; O2SAT 97
--- NOTE | 2019-12-11 12:12 | PM.DCS ---
Discharge Providers Date of Admission: 12/09/19 19:34 Date of Discharge: December 11, 2019 Attending Provider at Admission: David Nunes MD Attending Provider at Discharge: Kahlil Grissom MD Primary Care Provider: Delmer Whitley MD Diagnoses at Discharge Discharge Diagnosis (1) Brain mass: Status: Acute (2) Altered mental status: Status: Acute Qualifiers: Altered mental status type: unspecified Qualified Code(s): R41.82 - Altered mental status, unspecified (3) Aortic stenosis: Status: Acute Reason for Visit Reason for Visit: sent from doc for delirium and neuroimaging Hospital Course Discharge Summary: This is a 69-year-old male with a past medical history of mild aortic stenosis, hypertension, history of non-small cell lung cancer of the right upper and right middle lobe status post lobectomy, did not receive chemotherapy, managed by Dr. Chau, last in 2014 who presented to [facility] due to weakness, fatigue, weight loss, falls, altered mental status, and being told in preop for back surgery that he had cancer in his spine. 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 I advised patient that his head CT shows severe vasogenic edema, left hemispheric mass affect, concerning for underlying neoplastic process. Patient does have a history of non-small cell lung cancer of the right upper and right middle lobe, status post lobectomy, did not receive chemoradiation, managed by Dr. Chau, last seen in 2014. Currently the primary is unknown, but imaging does show possible metastatic lesions in L2 and L3 vertebral bodies, sclerotic bone lesion in the left hilum. All is concerning for metastatic malignancy, primary is unknown, but possibilities include non-small cell lung cancer, paraneoplastic syndrome, prostate cancer his PSA is elevated. Currently he is receiving steroids, head of bed elevation, neurochecks, seizure precautions. Currently concern for cerebral edema, mass-effect increased intracranial pressure, leading to herniation and significant morbidity and mortality. Currently at our hospital we do not have any neurosurgery, so if there was any indication of worsening cerebral edema or herniation, he would have to be transferred to [place], for consideration for bur hole procedure. I have discussed the case with Dr. Chau, who advised that the first step is to decrease cerebral edema, and irradiate the metastatic lesions, patient will be a candidate for whole brain radiation, as inpatient, and that we would try to figure out the primary. I advised patient that radiographically this looks a lot like metastatic disease to the brain, however cancer is a tissue diagnosis, and to prove that it is cancer we would need a tissue biopsy, but radiographically it looks like malignancy, patient voiced understanding, all well questions answered. I advised patient and family, that he has 2 options: 1.) Pursue medical treatment, we can consult radiation oncology as inpatient, we can start inpatient whole brain radiation, and then we can proceed beginning at the primary, risks and benefits discussed, complications discussed, voiced understanding, all questions answered 2.) Second option involves pursuing hospice, hospice at home, this would emphasize more of a quality of life, he could be around family numbers, we would treat his pain, treat his anxiety, he would have a nurse who can come and see him 3 times a week, he would have hospice physician Patient and family has chosen to proceed with hospice, risk and benefits discussed, voiced understanding, all questions answered I confirmed patient's CODE STATUS, he wants to be DNR/DNI, risk and benefits discussed, voiced understanding, all questions answered I advised patient at any time he can suffer significant cerebral edema, brain herniation, that is associate with significant morbidity and mortality, if he were to suffer worsening headaches, blurry vision, or other symptomatology that concerning for worsening cerebral edema and or brain herniation, patient does not want to have bur hole procedure, wants us to make him as comfortable as possible, treat his pain, treat his suffering, agreed to proceed, advised of risks and benefits, voiced understanding, all questions answered, agreed to proceed with Patient's family was at bedside during conversation, was at bedside, son was at bedside, 2 daughters were at bedside, all confirmed the plan above, voiced understanding, all questions answered Patient was discharged on home hospice, home hospice orders, Jessi Stonefran. Of note I have given patient a full month supply of Decadron, high-dose, given the significant amount of cerebral edema and significant mass-effect and neoplastic process, I feel that he has a high risk of worsening cerebral edema and risk of seizures thus will require a prolonged course. I will leave up the tapering up to his hospice physician. Physical Exam Const: COMMON NORMALS: no acute distress and patient oriented x3 HENMT: COMMON NORMALS: normocephalic HEAD & SCALP: normocephalic Neck/C-Spine: COMMON NORMALS: no JVD Resp: COMMON NORMALS: normal respiratory effort, No retractions, No use of accessory muscles and clear to auscultation bilaterally AUSCULTATION: clear to auscultation bilaterally Cardio: COMMON NORMALS: no JVD, regular rate, regular rhythm, S1 normal heart sound present and S2 normal heart sound present RATE: regular rate RHYTHM: regular rhythm HEART SOUNDS: S1 normal heart sound present and S2 normal heart sound present GI: COMMON NORMALS: Normal to inspection, nondistended, normoactive bowel sounds present, Soft to palpation, non-tender, No hepatosplenomegaly present, no masses and no bruits PALPATION: Yes Soft to palpation and Yes No hepatosplenomegaly present Extremity: COMMON NORMALS: capillary refill normal, no clubbing, cyanosis or edema, no calf tenderness and no pedal edema Neuro: COMMON NORMALS: patient oriented x3 Psych: COMMON NORMALS: mental status grossly normal Discharge Data Data Completed and Pending: Completed Studies During Hospitalization Category Date Time Status CT chest abd pel wo con Routine Cat Scan 12/10/19 08:[address] head wo con* 7 0450 Stat Cat Scan 12/09/19 17:[address] lumbar spine w o con* [id number] Routi ne Cat Scan 12/09/19 23:[address] thoracic spin wo con* [id number] Rout ine Cat Scan 12/09/19 23:10 Completed XR chest 1V jennifer ble [id number] Stat Exams 12/09/19 17:53 Completed Labs from last 24 hours 12/10/19 21:03 POC Glucose 134 Vitals: Last Vital Signs Temp 98.9 F 12/11/19 07:48 Pulse 102 H 12/11/19 07:48 Resp 16 12/11/19 07:48 BP 126/77 12/11/19 07:48 Pulse Ox 96 12/11/19 07:48 Discharge Plan Discharge Patient Disposition: Hospice - Home Condition: Stable Prescriptions: New dexamethasone 4 mg Tablet 4 mg PO QID 30 Days Qty: 120 RF: 0 Protonix 40 mg tablet,delayed release (DR/EC) 40 mg PO BID 30 Days Qty: 60 RF: 0 Continued ferrous sulfate 325 mg (65 mg iron) tablet 325 mg PO DAILY RF: 0 eszopiclone [Lunesta] 3 mg tablet 3 mg PO .HS RF: 0 fentanyl 25 mcg/hr patch 72 hour 1 patch TRANSDERMA Q72H RF: 0 albuterol sulfate 2.5 mg /3 mL (0.083 %) solution for nebulization 2.5 mg INHALATION Q4H PRNRF: 0 hydrocodone-acetaminophen 10-325 mg tablet 1 tab PO Q6H PRNRF: 0 lorazepam 0.5 mg tablet 0.5 mg PO DAILY PRNRF: 0 travoprost [Travatan Z] 0.004 % drops ophthalmic (eye) .HS RF: 0 citalopram [Celexa] 40 mg tablet 40 mg PO DAILY RF: 0 docusate sodium [Colace] 100 mg capsule 100 mg PO DAILY RF: 0 tramadol 50 mg tablet 50 mg PO Q6H PRNRF: 0 Discontinued lisinopril 10 mg tablet 10 mg PO DAILY RF: 0 esomeprazole magnesium [Nexium] 40 mg capsule,delayed release(DR/EC) 40 mg PO DAILY RF: 0 aspirin [Aspir-81] 81 mg tablet,delayed release (DR/EC) 81 mg PO DAILY RF: 0 simvastatin 40 mg tablet 40 mg PO DAILY RF: 0 Discharge Orders: Discharge Order (Routine); Ordered 12/11/19 Ordered By: Kahlil Grissom Referrals: [facility] (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
--- NOTE | 2019-12-11 13:48 | PC.NURSE ---
pt iv taken out and intact. pt discharge instruction explained and all questions answered. pt took to surgical services entrance via wheelchair to grandson.
[2019-12-11 13:55] VITALS: BP 135/88; PULSE 88; RESP 17; TEMP 36.8; O2SAT 97
== END 2019-12-11 13:57 | disposition hospice, home (50) ==
LOC: ER 19:34 → MEDSURG 22:02
PROVIDERS: Emergency Medicine; Admitting Provider Internal Medicine; PCP Family Medicine; Visit Provider Family Medicine
DX: G93.89 Other specified disorders of brain (principal); R41.82 Altered mental status, unspecified; I35.0 Nonrheumatic aortic (valve) stenosis; Z91.81 History of falling; I10 Essential (primary) hypertension; M54.5 Low back pain; Z85.118 Personal history of other malignant neoplasm of bronchus and lung; Z79.82 Long term (current) use of aspirin; E78.5 Hyperlipidemia, unspecified; Z87.11 Personal history of peptic ulcer disease; Z87.891 Personal history of nicotine dependence; Z66 Do not resuscitate; Z23 Encounter for immunization
CPT/HCPCS: 12345; 36415; 36416; 70450; 71045; 71250; 72128; 72131; 74176; 80048; 80053; 81001; 82140; 82962; 84153; 85025; 85610; 87086; 90471; 90686; 93005; 96375; 99283; 99285; G0378; J2060; J2405; J8540; Q0162